=== PATIENT | female | born 1965 | race African-American/Black ===

== ENCOUNTER 2019-05-19 13:26 | Emergency (ER) | payer BC ==
[2019-05-19] MEDS ORDERED: Lidocaine PATCH 5%* 1 PATCH TRANSDERM SCH (15:16)
[2019-05-19] MEDS ORDERED: Ketorolac INJ* 30 MG/ML 1 ML VIAL IM ONE (15:16)
--- NOTE | 2019-05-19 15:22 | ED ---
Lower Extremity - HPI Summary HPI Summary: Patient complains of sudden onset right knee pain 1 day. Denies trauma. Admits to progressive pain and swelling. Denies any other pain, injury symptoms. - History of Current Complaint Chief Complaint: EDExtremityLower Stated Complaint: RIGHT KNEE PAIN AND BURNING PER PT Time Seen by Provider: 05/19/19 14:42 Hx Obtained From: Patient Mechanism Of Injury: Unknown Onset/Duration: Hours Severity Initially: Severe Severity Currently: Severe Pain Intensity: 10 Pain Scale Used: 0-10 Numeric Timing: Constant Location: Is Discrete @ Character Of Pain: Aching, Throbbing Associated Signs And Symptoms: Positive: Swelling, Knee Pain Aggravating Factor(s): Standing, Ambulation, Movement, Weight Bearing Alleviating Factor(s): Rest, Elevation Able to Bear Weight: Yes - Allergies/Home Medications Allergies/Adverse Reactions: Allergies Allergy/AdvReac Type Severity Reaction Status Date / Time iron Allergy See Comment Verified 05/19/19 13:48 prednisone Allergy See Comment Verified 05/19/19 13:48 PMH/Surg Hx/FS Hx/Imm Hx Endocrine/Hematology History: Denies: Hx Anticoagulant Therapy Cardiovascular History: Denies: Hx Pacemaker/ICD History: Denies: Hx Dialysis Sensory History: Denies: Hx Eye Prosthesis Opthamlomology History: Denies: Hx Legally Blind EENT History: Denies: Hx Deafness Neurological History: Denies: Hx Dementia Infectious Disease History: No Infectious Disease History: Denies: Traveled Outside the [place] in Last 30 Days - Family History Known Family History: Positive: Non-Contributory - Social History Alcohol Use: Rare Substance Use Type: Reports: None Smoking Status (MU): Never Smoked Tobacco Review of Systems Constitutional: Negative Eyes: Negative ENT: Negative Cardiovascular: Negative Respiratory: Negative Gastrointestinal: Negative Genitourinary: Negative Musculoskeletal: Other Skin: Negative Neurological: Negative Psychological: Normal All Other Systems Reviewed And Are Negative: Yes Physical Exam - Summary Physical Exam Summary: Full range of motion of right knee. Very minimal swelling. No effusion. Nontender. No erythema, ecchymosis, deformity noted. No extra warmth noted. PMS intact distally. Triage Information Reviewed: Yes Vital Signs On Initial Exam: Initial Vitals Temp Pulse Resp BP Pulse Ox 98.8 F 99 16 169/128 99 05/19/19 13:43 05/19/19 13:43 05/19/19 13:43 05/19/19 13:43 05/19/19 13:43 Vital Signs Reviewed: Yes Appearance: Positive: Well-Appearing Skin: Positive: Warm Head/Face: Positive: Normal Head/Face Inspection Eyes: Positive: Normal Neck: Positive: Supple Respiratory/Lung Sounds: Positive: Clear to Auscultation Cardiovascular: Positive: Normal Abdomen Description: Positive: Nontender Musculoskeletal: Positive: Normal Neurological: Positive: Normal Psychiatric: Positive: Normal AVPU Assessment: Alert - [place] Coma Scale Best Eye Response: 4 - Spontaneous Best Motor Response: 6 - Obeys Commands Best Verbal Response: 5 - Oriented Coma Scale Total: 15 Procedures - Sedation Patient Received Moderate/Deep Sedation with Procedure: No Diagnostics - Vital Signs Vital Signs Temp Pulse Resp BP Pulse Ox 05/19/19 13:43 98.8 F 99 16 169/128 99 - Laboratory Lab Statement: Any lab studies that have been ordered have been reviewed, and results considered in the medical decision making process. Lower Extremity Course/Dx - Course Course Of Treatment: Patient complains of sudden onset right knee pain 1 day. Denies trauma. Admits to progressive pain and swelling. Denies any other pain , injury symptoms. Vital signs within normal limits. No indication for imaging. - Diagnoses Provider Diagnoses: Musculoskeletal pain of right lower extremity Discharge ED - Sign-Out/Discharge Documenting (check all that apply): Patient Departure - Discharge Plan Condition: Stable Disposition: HOME Prescriptions: Lidocaine PATCH 5%* [Lidoderm 5% Patch*] 1 patch TRANSDERM DAILY #5 patch Patient Education Materials: Musculoskeletal Pain (ED) Referrals: Esvin Arroyo MD [Medical Doctor] - Jimbo Jackson MD [Medical Doctor] - Additional Instructions: Alternate ibuprofen 600 mg with Tylenol 650 mg every 3 hours as needed for pain. Use lidocaine patches as directed as needed for pain. Ice 15 minutes at a time frequently through the day. Rest right leg. If symptoms persist more than 1 week follow-up with orthopedics Dr. Jacskon for further evaluation. - Billing Disposition and Condition Condition: STABLE Disposition: Home
[2019-05-19 15:42] VITALS: BP 136/85
[2019-05-19] MEDS ORDERED: Lidocaine Patch REMOVE* 1 NOTE MISC SCH (21:00)
== END 2019-05-19 15:40 | disposition home or self-care (01) ==
LOC: ED 13:26
DX: M79.604 Pain in right leg (principal); M25.561 Pain in right knee; Z88.8 Allergy status to other drugs, medicaments and biological substances
CPT/HCPCS: 96372; 99282; A9270-GY; J1885

== ENCOUNTER 2019-11-20 16:05 | Emergency (ER) | payer SELFPAY ==
[2019-11-20] MEDS ORDERED: Ketorolac INJ* 30 MG/ML 1 ML VIAL IM ONE (16:31)
[2019-11-20] MEDS ORDERED: Cyclobenzaprine TAB* 10 MG PO ONE (16:31)
--- NOTE | 2019-11-20 16:44 | ED ---
Back Pain - HPI Summary HPI Summary: 53-year-old female with no significant past medical history presents to the emergency department today after a work-related injury which occurred at approximately 0700 this date. Patient states she was bent over and pulled on a drawer with approximately 30 pounds and at immediately had sudden onset 10 out of 10 low back pain. Patient has associated radiculopathy in her bilateral legs however it is slightly worse on the right leg. Patient denies saddle paresthesia or incontinence. Patient has no history of osteoporosis or spine fracture. Patient has been ambulatory and not taking any medication prior to arrival. There is no obvious deformity. Patient is otherwise well and denies fever, cough, sore throat, chest pain, abdominal pain, shortness of breath, nausea, vomiting and diarrhea. - History of Current Complaint Chief Complaint: EDBackInjuryPain Stated Complaint: BACK PAIN PER PT Time Seen by Provider: 11/20/19 16:20 Hx Obtained From: Patient Onset/Duration: Sudden Onset Onset/Duration: Started Hours Ago Timing: Constant Back Pain Location: Is Discrete @ - Lumbar spine Severity Initially: Severe Severity Currently: Severe Pain Intensity: 10 Pain Scale Used: 0-10 Numeric Character: Aching Aggravating Symptom(s): Movement, Lifting, Bending, Walking Alleviating Symptom(s): Nothing Associated Signs And Symptoms: Positive: Numbness, Tingling, Pain with Weight Bearing. Negative: Swelling, Redness, Bruising, Fever, Weakness, Abdominal Pain , Flank Pain, Bladder Incontinence, Bowel Incontinence, Weight Loss - Allergies/Home Medications Allergies/Adverse Reactions: Allergies Allergy/AdvReac Type Severity Reaction Status Date / Time iron Allergy See Comment Verified 11/20/19 16:12 prednisone Allergy See Comment Verified 11/20/19 16:12 Home Medications: Home Medications Lidocaine PATCH 5%* [Lidoderm 5% Patch*] 1 patch TRANSDERM DAILY #5 patch [Rx] Cyclobenzaprine TAB* [Flexeril 10 MG TAB*] 10 mg PO TID PRN #15 tab 11/20/19 [Rx ] Ibuprofen TAB* [Motrin TAB* 800 MG] 800 mg PO Q8H PRN #12 tab 11/20/19 [Rx] PMH/Surg Hx/FS Hx/Imm Hx Endocrine/Hematology History: Denies: Hx Anticoagulant Therapy Cardiovascular History: Denies: Hx Pacemaker/ICD History: Denies: Hx Dialysis Sensory History: Denies: Hx Eye Prosthesis, Hx Legally Blind, Hx Deafness Opthamlomology History: Denies: Hx Eye Prosthesis, Hx Legally Blind Neurological History: Denies: Hx Dementia Infectious Disease History: No Infectious Disease History: Denies: Traveled Outside the [place] in Last 30 Days - Family History Known Family History: Positive: Non-Contributory - Social History Alcohol Use: Rare Substance Use Type: Reports: None Smoking Status (MU): Never Smoked Tobacco Review of Systems Constitutional: Negative Eyes: Negative ENT: Negative Cardiovascular: Negative Respiratory: Negative Gastrointestinal: Negative Genitourinary: Negative Positive: Myalgia. Negative: Arthralgia, Decreased ROM, Edema Skin: Negative Neurological/Mental Status: Negative Psychological: Normal All Other Systems Reviewed And Are Negative: Yes Physical Exam - Summary Physical Exam Summary: Patient is in no acute distress resting comfortably in hospital stretcher. Patient complains of lumbar back pain. There is no tenderness with palpation of the thoracic or lumbar spine. Patient has significant pain with palpation of the right paraspinal lumbar muscles. Patient has no radiculopathy bilaterally with straight leg raise. Patient is ambulatory. Patient has a mildly antalgic gait. No evidence of ecchymosis, erythema or edema. Patient has full range of motion of the spine. Patient has subjective numbness and tingling in the bilateral thighs. Triage Information Reviewed: Yes Vital Signs On Initial Exam: Initial Vitals Temp Pulse Resp BP Pulse Ox 98.3 F 91 16 154/98 98 11/20/19 16:08 11/20/19 16:08 11/20/19 16:08 11/20/19 16:08 11/20/19 16:08 Vital Signs Reviewed: Yes Appearance: Positive: Well-Appearing, No Pain Distress, Well-Nourished Skin: Positive: Warm, Skin Color Reflects Adequate Perfusion Eyes: Positive: EOMI, ARLYN ENT: Positive: Hearing grossly normal Respiratory/Lung Sounds: Positive: Clear to Auscultation, Breath Sounds Present. Negative: Unable to speak in full sentences Cardiovascular: Positive: RRR, S1, S2 Musculoskeletal: Positive: Strength/ROM Intact Neurological: Positive: Sensory/Motor Intact, Alert, Oriented to Person Place, Time, Normal Gait, Facial Symmetry, Speech Normal Psychiatric: Positive: Normal, Affect/Mood Appropriate AVPU Assessment: Alert Procedures - Sedation Patient Received Moderate/Deep Sedation with Procedure: No Diagnostics - Vital Signs Vital Signs Temp Pulse Resp BP Pulse Ox 11/20/19 16:08 98.3 F 91 16 154/98 98 - Laboratory Lab Statement: Any lab studies that have been ordered have been reviewed, and results considered in the medical decision making process. Back Pain Course/Dx - Course Course Of Treatment: Patient was evaluated in the emergency department today for back pain. Vitals noted and stable. Physical exam was consistent with acute lumbar muscle strain on the right. No evidence of spinal fracture or cauda equina. Patient had negative straight leg raise for radiculopathy. There is no obvious deformity or midline tenderness. Imaging and laboratory studies were not needed for evaluation of this patient. Patient was placed on light duty for one week or until cleared by medical provider. This is a work- related incident. Patient discharged to outpatient follow-up with prescription for ibuprofen and Flexeril. - Diagnoses Differential Diagnosis/HQI/PQRI: Positive: Cauda Equina Syndrome, Fracture, Herniated Disc, Strain, Sprain Provider Diagnoses: Strain of lumbar paraspinal muscle - Critical Care Time Critical Care Statement: Critical care time is provided exclusive of any time spent performing procedures. Discharge ED - Sign-Out/Discharge Documenting (check all that apply): Patient Departure - Discharge Plan Condition: Stable Disposition: HOME Prescriptions: Cyclobenzaprine TAB* [Flexeril 10 MG TAB*] 10 mg PO TID PRN #15 tab PRN Reason: Pain - Moderate Ibuprofen TAB* [Motrin TAB* 800 MG] 800 mg PO Q8H PRN #12 tab PRN Reason: Pain - Mild Patient Education Materials: Back Pain (ED) Forms: *Work Release Referrals: [facility] [Outside] - 5 Days No Primary Care Phys,NOPCP [Primary Care Provider] - Additional Instructions: You were seen in the emergency department today for back pain. Please follow up with your primary care physician in 5 days for further evaluation and management of your injury. Please take for your symptoms: * Ibuprofen 800mg three times daily with meals for pain. (Anti Inflammatory) * Flexeril 10mg every 8 hours as needed for pain. (Muscle relaxant) Most people with an episode of low back pain do not have a serious medical problem, and can try simple treatments such as: Staying active The best thing you can do is to stay as active as possible. People with low back pain recover faster if they stay active. If your pain is severe, you might need to rest for a day or 2. But it's important to get back to walking and moving as soon as possible. While you should avoid heavy lifting and sports while your back hurts, try to keep doing your normal daily activities. Heat Some people find that it helps to use a heating pad or heated wrap. Be careful to avoid high heat settings to prevent skin foreman. Spinal manipulation This is when a chiropractor, physical therapist, or other professional moves or "adjusts" the joints of your back. If you want to try this, talk to your doctor or nurse first. Acupuncture This is when someone who knows traditional English medicine inserts tiny needles into your body to block pain signals. Massage While back pain usually goes away within a few weeks, some people do continue to have pain for longer. In this case, additional treatments might include: Self care This involves being aware of your pain. While you should rest when you need to, it's important to stay active as much as you can. Things like applying heat and doing gentle stretches can help you feel better, too. Physical therapy A physical therapist is an exercise expert who can teach you stretches and movements to help strengthen your muscles. The goal is to relieve pain but also help you get back to your normal activities. Exercises you can try include walking, swimming, or using an exercise bike. Some people also find that Ritesh Chi or yoga can help with their back pain. Finding activities you enjoy can help you stay active. Reducing stress Some people find that it helps to try something called "mindfulness-based stress reduction." This involves going to a group program to practice relaxation and meditation. If your back pain is making you feel anxious or depressed, talk to your doctor or nurse. There are other treatments that can help with these problems. Only a small number of people end up needing surgery to treat back pain. - Billing Disposition and Condition Condition: STABLE Disposition: Home - Attestation Statements Provider Attestation: I was available for consultation for this patient. I did not evaluate the patient or participate in any medical decision making or disposition decisions unless I am specifically named in the chart as having consulted on the patient. If I have consulted on the patient, please see my own ED note on the patient encounter. Helena Qureshi MD
[2019-11-20 16:48] VITALS: BP 150/95
== END 2019-11-20 16:47 | disposition home or self-care (01) ==
LOC: ED 16:05
DX: S39.012A Strain of muscle, fascia and tendon of lower back, initial encounter (principal); M54.9 Dorsalgia, unspecified; X50.0XXA Overexertion from strenuous movement or load, initial encounter; Y92.89 Other specified places as the place of occurrence of the external cause; Z88.8 Allergy status to other drugs, medicaments and biological substances
CPT/HCPCS: 96372; 99282; A9270-GY; J1885